=== PATIENT | male | born 1960 | race Caucasian/White ===

== ENCOUNTER → 2022-07-10 | Outpatient (CLI) | payer OTHER ==
[2022-07-10 18:16] LABS: Basophils # (A) 0.06 X 10*3/uL (0.00-0.10); Basophils % (A) 0.9 %; Eosinophils # (A) 0.58 X 10*3/uL (0.04-0.35); Eosinophils % (A) 8.3 %; HCT 41.4 % (39.6-50.0); HGB 13.3 g/dL (13.0-17.0); Immature Grans, Automated 0.4 %; Lymphocytes # (A) 1.72 X 10*3/uL (0.90-5.00); Lymphocytes % (A) 24.6 %; MCH 27.8 pg (27.0-32.0); MCHC 32.1 g/dL (32.0-37.0); MCV 86.4 fL (80.0-97.0); Mean Platelet Volume 9.6 fL (9.5-12.2); Monocytes # (A) 0.77 X 10*3/uL (0.20-1.00); NRBC Per 100 WBC 0 /100 WBCS (0.0-0.0); Neutrophils # (A) 3.83 X 10*3/uL (1.80-7.70); Neutrophils % (A) 54.8 %; Platelet Count 325 X 10*3/uL (140-440); RBC 4.79 X 10*6/uL (4.40-5.60); WBC 6.99 X 10*3/uL (4.50-10.00)
[2022-07-10 18:49] LABS: African American GFR (CKD) 92.4 (60.0-200.0); Albumin 4.7 g/dL (3.8-4.9); Albumin/Globulin Ratio 1.72 (1.60-3.17); Anion Gap 14.6 mmol/L (10.00-18.00); BUN/Creat Ratio 11.4 Ratio (12.00-20.00); Blood Urea Nitrogen 11.4 mg/dL (9.0-27.0); Calcium 9.5 mg/dL (8.7-10.3); Carbon Dioxide 20.1 mmol/L (20.0-27.5); Globulin 2.7 g/dL (1.6-3.3); Non-African American GFR(CKD) 79.7 (60.0-200.0); Potassium 4.2 mmol/L (3.5-5.5); Total Bilirubin 0.2 mg/dL (0.30-1.20); Total Protein 7.4 g/dL (6.2-8.2)
== END | disposition home or self-care (01) ==
LOC: LABWHC1 11:24
PROVIDERS: ATTEND Psychiatry & Neurology Neurology
DX: G40.911 Epilepsy, unspecified, intractable, with status epilepticus (principal)
CPT/HCPCS: 36415; 80053; 80175; 82306; 85025

== ENCOUNTER 2024-03-30 16:48 | Emergency (ER) | payer OTHER ==
--- NOTE | 2024-03-30 17:01 | ED ---
General Adult HPI - General Chief complaint: ENT Stated complaint: object stuck in throat Time Seen by Provider: 03/30/24 16:55 Source: patient, EMS, RN notes reviewed Mode of arrival: EMS Limitations: no limitations - History of Present Illness Initial comments: Patient is a 64-year-old male presenting to the emergency department with concern for chicken stuck in his throat. Patient has had similar symptoms previously. Episode today occurred around 315. No dyspnea. Patient feels it is stuck in his throat and has had nausea and spitting up. No abdominal pain. - Related Data Home Medications Medication Instructions Recorded Confirmed Aspirin [Adult Low Dose Aspirin EC] 81 mg PO DAILY 11/05/16 11/08/16 Citalopram Hydrobromide [CeleXA] 20 mg PO HS 11/05/16 11/09/16 Donepezil [Aricept] 10 mg PO DAILY 11/05/16 11/08/16 Folic Acid 1 mg PO DAILY 11/05/16 11/08/16 HYDROcodone/APAP 7.5-325MG [[place] 1 tab PO TID PRN 11/05/16 11/08/16 7.5-325] Megestrol Acetate 20 mg PO BID 11/05/16 11/08/16 Memantine [Namenda] 10 mg PO BID 11/05/16 11/08/16 Naproxen Sodium [Aleve] 440 mg PO BID 11/05/16 11/08/16 Primidone [Mysoline] 50 mg PO HS 11/05/16 11/08/16 Tokendi Xr 400 mg PO DAILY@1200 11/05/16 11/08/16 lamoTRIgine [LaMICtal] 25 mg PO DAILY@0700 11/05/16 11/08/16 lamoTRIgine [LaMICtal] 300 mg PO BID@0700,1700 11/05/16 11/08/16 levETIRAcetam [Keppra] 750 mg PO BID@0700,1700 11/05/16 11/08/16 raNITIdine HCL [Zantac] 150 mg PO BID 11/05/16 11/08/16 risperiDONE [RisperDAL] 0.5 mg PO HS 11/05/16 11/08/16 Multivitamins, Thera [Multivitamin] 1 tab PO DAILY 11/08/16 11/08/16 Previous Rx's Medication Instructions Recorded Pantoprazole [Protonix] 40 mg PO DAILY #30 tab 03/30/24 Allergies Allergy/AdvReac Type Severity Reaction Status Date / Time No Known Allergies Allergy Verified 03/30/24 16:56 Review of Systems ROS Statement: Those systems with pertinent positive or pertinent negative responses have been documented in the HPI. ROS Other: All systems not noted in ROS Statement are negative. Constitutional: Denies: fever Eyes: Denies: eye pain ENT: Denies: ear pain Cardiovascular: Denies: chest pain Gastrointestinal: Reports: as per HPI, nausea. 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 BARNEY ING HERNIAS. Parkinson's Disease History of Any Multi-Drug Resistant Organisms: None Reported Past Surgical History: Orthopedic Surgery Additional Past Surgical History / Comment(s): RT Shoulder Past Anesthesia/Blood Transfusion Reactions: No Reported Reaction Past Psychological History: Anxiety, Depression Smoking Status: Never smoker Past Alcohol Use History: Heavy Past Drug Use History: Cocaine, Heroin, Marijuana, Methamphetamine, Opiates - Past Family History Mother Additional Family Medical History / Comment(s): ALZHEIMER'S General Exam Limitations: no limitations General appearance: alert, in no apparent distress Head exam: Present: normocephalic Eye exam: Present: normal appearance Neck exam: Present: normal inspection Respiratory exam: Present: normal lung sounds bilaterally Cardiovascular Exam: Present: regular rate, normal rhythm GI/Abdominal exam: Present: soft. Absent: tenderness Extremities exam: Present: normal inspection Neurological exam: Present: alert Psychiatric exam: Present: normal affect, normal mood Skin exam: Present: normal color Course Vital Signs 03/30/24 03/30/24 16:51 18:52 Temperature 99.2 F Pulse Rate 69 62 Respiratory 20 18 Rate Blood Pressure 153/92 125/80 O2 Sat by Pulse 100 99 Oximetry Medical Decision Making - Medical Decision Making Was pt. sent in by a medical professional or institution (, PA, DIRECTOR OF MEDICAL SERVICES, urgent care, hospital, or intermediate...) When possible be specific @ -No Did you speak to anyone other than the patient for history (EMS, parent, family, police, friend...)? What history was obtained from this source @ -No Did you review nursing and triage notes (agree or disagree)? Why? @ -I reviewed and agree with nursing and triage notes Were old charts reviewed (outside hosp., previous admission, EMS record, old EKG, old radiological studies, urgent care reports/EKG's, intermediate records)? Report findings @ -No old charts were reviewed Differential Diagnosis (chest pain, altered mental status, abdominal pain women, abdominal pain men, vaginal bleeding, weakness, fever, dyspnea, syncope, headache, dizziness, GI bleed, back pain, seizure, CVA, palpatations, mental health, musculoskeletal)? @ -Differential Abdominal Pain Men: Appendicitis, cholecystitis, diverticulosis, ischemic bowel, pancreatitis, hepatitis, UTI, gastroenteritis, AAA, incarcerated hernia, bowel obstruction, constipation, inflammatory bowel, hepatitis, peptic ulcer disease, splenic infarction, perforated viscus, testicular torsion, this is not meant to be an all-inclusive list EKG interpreted by me (3pts min.). @ -As above X-rays interpreted by me (1pt min.). @ -None done CT interpreted by me (1pt min.). @ -None done U/S interpreted by me (1pt. min.). @ -None done What testing was considered but not performed or refused? (CT, X-rays, U/S, labs)? Why? @ -None What meds were considered but not given or refused? Why? @ -None Did you discuss the management of the patient with other professionals (professionals i.e. , PA, DIRECTOR OF MEDICAL SERVICES, lab, RT, psych nurse, social contact worker, senior field engineer, teacher, juvenile corrections officer, onsite case manager)? Give summary @ -No Was smoking cessation discussed for >3mins.? @ -No Was critical care preformed (if so, how long)? @ -No Were there social determinants of health that impacted care today? How? (Homelessness, low income, unemployed, alcoholism, drug addiction, transportation, low edu. Level, literacy, decrease access to med. care, prison, rehab)? @ -No Was there de-escalation of care discussed even if they declined (Discuss DNR or withdrawal of care, Hospice)? DNR status @ -No What co-morbidities impacted this encounter? (DM, HTN, Smoking, COPD, CAD, Cancer, CVA, ARF, Chemo, Hep., AIDS, mental health diagnosis, sleep apnea, morbid obesity)? @ -None Was patient admitted / discharged? Hospital course, mention meds given and route, prescriptions, significant lab abnormalities, going to OR and other pertinent info. @ -Patient presents with concern for esophageal foreign body. Patient did receive Reglan and nitroglycerin and glucagon with resolution of symptoms. Patient is tolerating oral intake Undiagnosed new problem with uncertain prognosis? @ -No Drug Therapy requiring intensive monitoring for toxicity (Heparin, Nitro, Insulin, Cardizem)? @ -No Were any procedures done? @ -No Diagnosis/symptom? @ -Esophageal foreign body Acute, or Chronic, or Acute on Chronic? @ -Acute Uncomplicated (without systemic symptoms) or Complicated (systemic symptoms)? @ -Default Side effects of treatment? @ -No Exacerbation, Progression, or Severe Exacerbation? @ -No Poses a threat to life or bodily function? How? (Chest pain, [place], [place], pneumonia, PE, COPD, DKA, ARF, appy, cholecystitis, CVA, Diverticulitis, Homicidal, Suicidal, threat to staff... and all critical care pts) @ -No Disposition Clinical Impression: Esophageal foreign body Disposition: HOME SELF-CARE Condition: Stable Instructions (If sedation given, give patient instructions): Esophageal Foreign Body (ED) Additional Instructions: Prescription sent to pharmacy. Please do follow-up with primary care physician in the next day or 2 for recheck. Please also follow-up with gastroenterology, number provided. Return for not tolerating oral intake, pain, worsening symptoms or other concerns. Clear liquid diet for the next 24 hours. Prescriptions: Pantoprazole [Protonix] 40 mg PO DAILY #30 tab Is patient prescribed a controlled substance at d/c from ED?: No Referrals: Stewart Fernandez DO [Primary Care Provider] - 1-2 days Zenobia Martinez MD [STAFF PHYSICIAN] - 1-2 days Time of Disposition: 19:12
[2024-03-30] MEDS: METOCLOPRAMIDE 5 MG/ML 2 ML VIAL IVP STA (17:15)
[2024-03-30] MEDS: NITROGLYCERIN SL TABS 0.4 MG TAB SUBLINGUAL STA (17:20)
[2024-03-30] MEDS: GLUCAGON 1 MG/ML VIAL IVP STA (17:22)
[2024-03-30 17:32] VITALS: TEMP 99.2
[2024-03-30 19:31] VITALS: BP 125/80; PULSE 62; RESP 18
== END 2024-03-30 19:40 | disposition home or self-care (01) ==
LOC: EC 16:48
DX: T18.128A Food in esophagus causing other injury, initial encounter (principal)
CPT/HCPCS: 99284; 96374; 96375; J1610; J2765

== ENCOUNTER → 2024-09-02 | Outpatient (CLI) | payer MEDICARE ==
[2024-09-02 18:30] LABS: Basophils # (A) 0.06 X 10*3/uL (0.00-0.10); Basophils % (A) 0.8 %; Eosinophils % (A) 4.2 %; HCT 43.9 % (39.6-50.0); HGB 14.1 g/dL (13.0-17.0); Lymphocytes % (A) 14.1 %; MCH 29.7 pg (27.0-32.0); MCHC 32.1 g/dL (32.0-37.0); MCV 92.4 FL (80.0-97.0); Mean Platelet Volume 8.8 FL (9.5-12.2); Monocytes # (A) 0.74 X 10*3/uL (0.20-1.00); Monocytes % (A) 10.5 %; NRBC Per 100 WBC 0 X 10*3/uL (0.00-0.01); Neutrophils # (A) 4.95 X 10*3/uL (1.80-7.70); Platelet Count 321 X 10*3/uL (140-440); RBC 4.75 X 10*6/uL (4.40-5.60); RDW 12.8 % (11.5-14.5); WBC 7.08 X 10*3/uL (4.50-10.00)
[2024-09-02 19:14] LABS: % Iron Saturation 19.17 (15.00-50.00); ALT 25 U/L (10-49); AST 24 U/L (14-35); Albumin 4.5 g/dL (3.8-4.9); Albumin/Globulin Ratio 1.73 Ratio (1.60-3.17); Alkaline Phosphatase 81 U/L (41-126); BUN/Creat Ratio 10.67 Ratio (12.00-20.00); Blood Urea Nitrogen 9.6 mg/dL (9.0-27.0); Calcium 9.5 mg/dL (8.7-10.3); Carbon Dioxide 20.7 mmol/L (21.6-31.8); Chloride 106 mmol/L (96-109); Chol/HDL Ratio 3.45 Ratio; Ferritin 28.4 ng/mL (22.0-322.0); Globulin 2.6 g/dL (1.6-3.3); Glucose 82 mg/dL (70-110); Iron 88 UG/DL (65-175); LDL Cholesterol,Calculated 139.1 mg/dL (0.0-131.0); Potassium 4.4 mmol/L (3.5-5.5); Sodium 140 mmol/L (135-145); Total Bilirubin 0.3 mg/dL (0.3-1.2); Total Iron Binding Capacity 459 UG/DL (228-460); Total Protein 7.1 g/dL (6.2-8.2)
== END | disposition home or self-care (01) ==
LOC: LABWHC1 12:14
PROVIDERS: ATTEND Internal Medicine
CPT/HCPCS: 36415; 80053; 80061; 82607; 82728; 82746; 83540; 83550; 84443; 85025; 87522